=== PATIENT | male | born 1995 | race Caucasian/White ===

== ENCOUNTER 2023-08-31 16:57 | Emergency (ER) | payer SELFPAY ==
[2023-08-31 17:21] LABS: BASOPHILS ABSOLUTE AUTO 0.03 K/uL (0.00-0.20); BASOPHILS PERCENT AUTO 0.5 % (0.0-1.0); EOSINOPHILS PERCENT AUTO 1.7 % (0.0-6.0); HEMOGLOBIN 15.6 g/dL (14.0-18.0); IMMATURE GRAN ABSOLUTE AUTO 0.01 K/uL (0.00-0.05); IMMATURE GRAN PERCENT AUTO 0.2 % (0.0-0.4); LYMPHOCYTES ABSOLUTE AUTO 1.97 K/uL (1.00-4.80); LYMPHOCYTES PERCENT AUTO 32.5 % (24.0-44.0); MEAN CORPUSCULAR HGB CONC 34.7 g/dL (32.0-36.0); MEAN CORPUSCULAR VOLUME 89.5 fL (83.0-99.0); MONOCYTES ABSOLUTE AUTO 0.47 K/uL (0.00-0.80); MONOCYTES PERCENT AUTO 7.8 % (0.0-8.0); NEUTROPHILS ABSOLUTE AUTO 3.48 K/uL (1.80-7.70); NEUTROPHILS PERCENT AUTO 57.3 % (41.0-71.0); PLATELET COUNT,PLT 199 K/uL (150-400); RED BLOOD CELL COUNT 5.03 M/uL (4.52-5.90); WHITE BLOOD CELL COUNT,WBC 6.06 K/uL (3.9-11.3)
[2023-08-31 18:00] LABS: A/G RATIO 1.2 (0.9-1.6); ALANINE AMINOTRANSFERASE,ALT 29 IU/L (14-63); ALBUMIN 3.9 g/dL (3.4-5.0); ALKALINE PHOSPHATASE 91 U/L (46-116); ASPARTATE AMNIOTRANSFERASE,AST 13 IU/L (15-37); BLOOD UREA NITROGEN,BUN 10 mg/dL (7.0-18.0); CALCIUM 8.8 mg/dL (8.5-10.1); CARBON DIOXIDE,CO2 26.9 mmol/L (21.0-32.0); CHLORIDE,CL 103 mmol/L (98-107); CREATININE 0.8 mg/dL (0.8-1.3); EST CRCL DRUG DOSING (CG) 147.61 mL/min; GLUCOSE RANDOM 86 mg/dL (74-106); LIPASE 29 U/L (16-77); POTASSIUM,K 3.4 mmol/L (3.5-5.1); PROTEIN TOTAL,TP 7.2 g/dL (6.4-8.2); SODIUM,NA 140 mmol/L (136-148)
[2023-08-31 18:02] LABS: ESTIMATED GFR 123 mL/min (>60)
== END 2023-08-31 19:08 | disposition home or self-care (01) ==
LOC: MW.ED 16:57
DX: R07.9 Chest pain, unspecified (principal); Z72.0 Tobacco use
CPT/HCPCS: 36415; 71046; 71046-26; 80053; 83690; 84484; 85025; 93005; 93010; 99282; 99285